=== PATIENT | male | born 1960 | race African-American/Black ===

== ENCOUNTER 2020-12-29 11:31 | Emergency (ER) | payer SELFPAY ==
[2020-12-29] MEDS ORDERED: Ketorolac Tromethamine 30 MG/ML VIAL ONE (14:19)
== END 2020-12-29 14:42 | disposition home or self-care (01) ==
LOC: ERS 11:31
DX: M71.21 Synovial cyst of popliteal space [Baker], right knee (principal); M25.461 Effusion, right knee; F17.210 Nicotine dependence, cigarettes, uncomplicated
CPT/HCPCS: 96372; J1885